=== PATIENT | female | born 1940 | race Caucasian/White ===

== ENCOUNTER 2019-12-07 08:56 | Emergency (ER) | payer OTHER ==
[~2019-12-07] VITALS: Ht 142.2 cm; Wt 58.1 kg
[2019-12-07 09:01] VITALS: BP 133/77
--- NOTE | 2019-12-07 09:11 | NUR ---
C/O L WRIST PAIN/SWELLING X 2 DAYS DENIES INJURY USED BENGAY WITH MINOR IMPROVEMENT OF PAIN RADIAL PULSE 2+ BILATERALLY MOVES ALL FINGERS LEFT WRIST IS SWOLLEN, SLIGHTLY ERYTHEMATOUS, TTP PMH- OSTEOARTHRITIS, CHOLECYSTECTOMY, HTN, DM, HYPERCHOL
[2019-12-07] MEDS ORDERED: IBUPROFEN 400 MG TAB PO ONE (09:15)
--- NOTE | 2019-12-07 09:15 | NUR ---
DR. MATA EVALUATING PT AT BEDSIDE
--- NOTE | 2019-12-07 09:21 | NUR ---
XRAY AT BEDSIDE
--- NOTE | 2019-12-07 09:40 | NUR ---
LOBSTER CATCHER AT BEDSIDE FOR BLOOD DRAW
[2019-12-07] MEDS ORDERED: predniSONE 20 MG TAB PO ONE (10:15)
--- NOTE | 2019-12-07 10:17 | NUR ---
DR MATA RE-EVALUATING PT AT BEDSIDE
--- NOTE | 2019-12-07 10:26 | NUR ---
PT AMB TO BATHROOM
--- NOTE | 2019-12-07 10:46 | NUR ---
nadr, pain 10/04
[2019-12-07 10:47] VITALS: BP 138/67
--- NOTE | 2019-12-07 10:47 | NUR ---
Patient discharged with v/s stable. Written and verbal after care instructions given and explained. Patient alert, oriented and verbalized understanding of instructions. Ambulatory with steady gait. All questions addressed prior to discharge. ID band removed. Patient advised to follow up with PMD. Rx of prednisone given. Patient educated on indication of medication including possible reaction and side effects. Opportunity to ask questions provided and answered. instructed to pts son that she can alternate between tylenol and motrin for pain/inflammation pt walked to [employer] car
== END 2019-12-07 10:47 | disposition home or self-care (01) ==
LOC: MED 08:56
DX: M13.832 Other specified arthritis, left wrist (principal)
CPT/HCPCS: 36415; 73110; 84550; 99284; J7512; Q0092

== ENCOUNTER 2019-12-25 09:09 | Emergency (ER) | payer OTHER ==
[~2019-12-25] VITALS: Ht 144.8 cm; Wt 47.6 kg
[2019-12-25 09:18] VITALS: BP 130/107
--- NOTE | 2019-12-25 09:21 | NUR ---
Patient transferred to bed 4 via wheelchair by triage nurse. RN evaluating patient at bedside.
--- NOTE | 2019-12-25 09:26 | NUR ---
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 PT STATES SHE WAS WALKING TO GRAB A NEW COLOSTOMY BAG AND TRIPPED. PT REPORTS FALLING AND HITTING HEAD ON FLOOR. DENIES LOC. BUMP AND ABRAISON NOTED TO R SIDE PARIETAL REGION OF SCALP. BLEEDING CONTROLLED AT THIS TIME. PT A & O X3, ANSWERING QUESTIONS APPROPRIATELY. DENIES N/V/DIZZINESS/BLURRED VISION. PERRLA 3MM, BUE/BLE STRENGTH EQUAL,NO SLURRED SPEECH, UNILATERAL WEAKNESS OR FACIAL DROOP NOTED. FSBS 481 AT THIS TIME. PT PLACED ON BEDSIDE CAUL DRESSER. BED IN LOW POSITION, SIDE RAIL UP X1
[2019-12-25] MEDS ORDERED: LOSA50TA66 PO (09:32)
[2019-12-25] MEDS ORDERED: CIPR500T4 PO (09:32)
[2019-12-25] MEDS ORDERED: RISP0.5T3 PO (09:32)
[2019-12-25] MEDS ORDERED: CYAN100T65 PO (09:32)
[2019-12-25] MEDS ORDERED: ATI.5 PO (09:32)
[2019-12-25] MEDS ORDERED: ASPI-1822 PO (09:32)
[2019-12-25] MEDS ORDERED: SITA100T8 PO (09:32)
--- NOTE | 2019-12-25 09:55 | NUR ---
DR. VAUGHN EVALUATING PT AT BEDSIDE
[2019-12-25] MEDS ORDERED: ACETAMINOPHEN EXTRA STRENGTH 500 MG TAB PO ONE (10:00)
--- NOTE | 2019-12-25 10:20 | NUR ---
PT LEFT TO CT VIA RNEY
[2019-12-25] MEDS ORDERED: INSULIN REGULAR, HUMAN 100 UNIT/ML VIAL SUBQ ONE (11:05)
[2019-12-25 12:20] VITALS: BP 130/107
--- NOTE | 2019-12-25 12:20 | NUR ---
Patient discharged with v/s stable. Written and verbal after care instructions given and explained. Patient verbalized understanding. Ambulatory with steady gait. All questions addressed prior to discharge. Advised to follow up with PMD.
== END 2019-12-25 12:20 | disposition home or self-care (01) ==
LOC: MED 09:09
DX: S00.03XA Contusion of scalp, initial encounter (principal); E11.9 Type 2 diabetes mellitus without complications; Z90.49 Acquired absence of other specified parts of digestive tract; Z98.890 Other specified postprocedural states; Z79.82 Long term (current) use of aspirin; Z79.899 Other long term (current) drug therapy; W01.0XXA Fall on same level from slipping, tripping and stumbling without subsequent striking against object, initial encounter; Y93.89 Activity, other specified; Y92.89 Other specified places as the place of occurrence of the external cause; Y99.8 Other external cause status
CPT/HCPCS: 70450; 72125; 96372; 99285; J1815